=== PATIENT | female | born 1950 | race African-American/Black ===

== ENCOUNTER 2018-04-22 22:46 | Emergency (ER) | payer BC ==
[~2018-04-22] VITALS: Ht 154.9 cm; Wt 84.0 kg
[~2018-04-22 22:46] MED LIST: CYMBALTA; DIOVAN; FENTANYL; ISOS5TAB4; PLAVIX; SIMVASTATIN; SOMA
[2018-04-23] MEDS ORDERED: MORPHINE SULFATE 4 MG/ML CPJ (NOT FOR IM USE) IV STA (00:32)
[2018-04-23] MEDS ORDERED: ONDANSETRON HCL 4MG/2ML INJ IV STA (00:32)
[2018-04-23 01:07] LABS: EOSINOPHILS % 0.5 % (0.0-5.0); HEMOGLOBIN. 11.4 g/dL (12.0-16.0); LYMPHOCYTES % 23.5 % (20.0-50.0); MEAN PLATELET VOLUME 10.1 fl (7.4-10.4); MONOCYTES % 8.3 % (2.0-8.0); NEUTROPHILS % 66.7 % (40.0-76.0); PLATELET 182 x1000/uL (130-400); RED BLOOD CELL COUNT 4.22 mill/uL (4.2-5.4)
[2018-04-23 01:14] LABS: CHLORIDE 106 mEq/L (98-107)
[2018-04-23] MEDS ORDERED: MORPHINE SULFATE 4 MG/ML CPJ (NOT FOR IM USE) IV ONE (02:30)
[2018-04-23] MEDS ORDERED: METHYLPREDNISOLONE SOD SUCC 125 MG/2 ML VIAL IV ONE (02:30)
[2018-04-23 04:21] VITALS: BP 164/83
== END 2018-04-23 04:30 | disposition home or self-care (01) ==
LOC: ER 23:15 → CANBEDREQ 04-23 09:01
DX: R51 Headache (principal); Z88.6 Allergy status to analgesic agent; Z88.0 Allergy status to penicillin; Z88.8 Allergy status to other drugs, medicaments and biological substances; Z95.1 Presence of aortocoronary bypass graft
CPT/HCPCS: 36415; 70450; 80048; 85025; 85651; 96374; 96375; 96376; 99285; J2270; J2405; J2930

== ENCOUNTER 2019-03-05 17:13 | Inpatient (IN) | payer BC ==
[~2019-03-05] VITALS: Ht 152.4 cm; Wt 78.9 kg
[2019-03-05] MEDS ORDERED: HYDRALAZINE 20MG/ML VIAL IV ONE (17:51)
[2019-03-05] MEDS ORDERED: ASPIRIN 81MG TABLET PO ONE (17:51)
[2019-03-05] MEDS ORDERED: ONDANSETRON HCL 4MG/2ML INJ IV ONE (17:51)
[2019-03-05] MEDS ORDERED: ONDANSETRON HCL 4MG/2ML INJ ONE (17:57)
[2019-03-05] MEDS ORDERED: ASPIRIN 325MG TABLET ONE (17:58)
[2019-03-05] MEDS ORDERED: HYDRALAZINE 20MG/ML VIAL ONE (17:59)
[2019-03-05 18:36] LABS: BASOPHILS % 0.9 % (0.0-2.0); HEMATOCRIT. 39.3 % (36.0-48.0); HEMOGLOBIN. 12.8 g/dL (12.0-16.0); LYMPHOCYTES % 16.5 % (20.0-50.0); MEAN CORPUSCULAR HEMOGLOBIN 26.9 pg (28.0-32.0); MEAN CORPUSCULAR VOLUME 82.6 fL (81.0-99.0); MEAN PLATELET VOLUME 10.8 fl (7.4-10.4); MONOCYTES % 2.5 % (2.0-8.0); NEUTROPHILS % 80.1 % (40.0-76.0); PLATELET 163 x1000/uL (130-400); RED BLOOD CELL COUNT 4.75 mill/uL (4.2-5.4); RED CELL DISTRIBUTION WIDTH 15.7 % (11.6-14.6)
[2019-03-05] MEDS ORDERED: NITROGLYCERIN 0.4MG TABLET SL SL ONE (18:45)
[2019-03-05] MEDS ORDERED: ACETAMINOPHEN 325MG TABLET PO PRN (19:00)
[2019-03-05] MEDS ORDERED: HYDROCODONE/ACETAMINOPHEN 5/325MG TABLET PO PRN (19:00)
[2019-03-05] MEDS ORDERED: HYDRALAZINE 20MG/ML VIAL IV PRN (19:00)
[2019-03-05] MEDS ORDERED: CLONIDINE 0.1MG TABLET PO PRN (19:00)
[2019-03-05 19:31] LABS: CHLORIDE 103 mEq/L (98-107)
[2019-03-05] MEDS: ONDANSETRON HCL 4MG/2ML INJ IV PRN (21:13)
[2019-03-05 23:50] VITALS: BP 165/82
[2019-03-06] VITALS: BP 165/82
[2019-03-06] MEDS: MORPHINE SULFATE 2 MG/ML CPJ (NOT FOR IM USE) IV PRN ×4 (00:46→14:26)
[2019-03-06] MEDS ORDERED: POTASSIUM CHLORIDE 20MEQ TABLET SR PO NR (01:00)
[2019-03-06 04:00] VITALS: BP 164/84
[2019-03-06 06:48] LABS: BASOPHILS % 0.2 % (0.0-2.0); EOSINOPHILS % 0.1 % (0.0-5.0); HEMATOCRIT. 36.9 % (36.0-48.0); HEMOGLOBIN. 12.2 g/dL (12.0-16.0); LYMPHOCYTES % 13.6 % (20.0-50.0); MEAN CORPUSCULAR HEMOGLOBIN 27.2 pg (28.0-32.0); MEAN CORPUSCULAR VOLUME 82.1 fL (81.0-99.0); MEAN PLATELET VOLUME 10.6 fl (7.4-10.4); MONOCYTES % 5.5 % (2.0-8.0); NEUTROPHILS % 80.6 % (40.0-76.0); PLATELET 183 x1000/uL (130-400); RED CELL DISTRIBUTION WIDTH 15.2 % (11.6-14.6)
[2019-03-06 08:00] VITALS: BP 170/79
[2019-03-06] MEDS ORDERED: ENOXAPARIN 40MG/0.4ML SYR SUBCUT SCH (09:00)
[2019-03-06] MEDS ORDERED: ASPIRIN 81MG EC TABLET PO NR (09:00)
[2019-03-06] MEDS ORDERED: OMEPRAZOLE 20MG CAPSULE EXTENDED RELEASE PO ONE (09:00)
[2019-03-06] MEDS ORDERED: CLONIDINE 0.1MG TABLET PO PRN (09:00)
[2019-03-06] MEDS ORDERED: AMLODIPINE 5MG TABLET PO SCH ×2 (09:30→10:45)
[2019-03-06] MEDS: ONDANSETRON HCL 4MG/2ML INJ IV PRN (09:32)
[2019-03-06] MEDS: LOSARTAN POTASSIUM 50 MG TABLET PO SCH (09:32)
[2019-03-06 09:37] LABS: BG BASE EXCESS -1.8 mmol/L (-2.0-2.0); BG CARBOXYHEMOGLOBIN 0.6 % (0.5-1.5); BG DEOXYHEMOGLOBIN 3.6 % (0.0-5.0); BG FRACTION INSPIRED OXYGEN 21; BG HCO3 ACT 22.1 mmol/L (22.0-26.0); BG METHEMOGLOBIN 0.2 % (0.0-1.5); BG OXYGEN SATURATION 96.4 % (92.0-98.5); BG OXYHEMOGLOBIN 95.6 % (94.0-97.0); BG PCO2 34.7 mmHg (35.0-45.0); BG PH 7.421 (7.350-7.450); BG PO2 85.1 mmHg (75.0-100.0); BG SAMPLE SITE LEFT RADIAL; BG TOTAL HEMOGLOBIN 13.2 g/dL (12.0-18.0); BG VENT MODE ROOM AIR
[2019-03-06] MEDS ORDERED: REGADENOSON 0.4 MG/5 ML IV NR (10:45)
[2019-03-06 12:00] VITALS: BP 114/58
[2019-03-06] MEDS: NITROGLYCERIN OINT 1GM/INCH UDPKT TD SCH ×2 (13:18→17:34)
[2019-03-06 16:00] VITALS: BP 96/46
[2019-03-06 20:00] VITALS: BP 98/51
[2019-03-06] MEDS: AMLODIPINE 5MG TABLET PO SCH (21:00)
[2019-03-06] MEDS: ATORVASTATIN CALCIUM 10MG TABLET PO SCH (21:04)
[2019-03-07] VITALS: BP 110/53
[2019-03-07 04:00] VITALS: BP 150/57
[2019-03-07] MEDS: NITROGLYCERIN OINT 1GM/INCH UDPKT TD SCH ×4 (04:26→17:53)
[2019-03-07] MEDS: MORPHINE SULFATE 2 MG/ML CPJ (NOT FOR IM USE) IV PRN ×2 (05:15→19:03)
[2019-03-07] MEDS: OMEPRAZOLE 20MG CAPSULE EXTENDED RELEASE PO SCH (06:16)
[2019-03-07 06:27] LABS: EOSINOPHILS % 0.7 % (0.0-5.0); HEMATOCRIT. 38.1 % (36.0-48.0); HEMOGLOBIN. 12.4 g/dL (12.0-16.0); LYMPHOCYTES % 34.7 % (20.0-50.0); MEAN PLATELET VOLUME 10.1 fl (7.4-10.4); MONOCYTES % 7.2 % (2.0-8.0); NEUTROPHILS % 56.4 % (40.0-76.0); PLATELET 202 x1000/uL (130-400); RED CELL DISTRIBUTION WIDTH 15.5 % (11.6-14.6)
[2019-03-07 06:43] LABS: CHLORIDE 105 mEq/L (98-107)
[2019-03-07 08:00] VITALS: BP 109/54
[2019-03-07] MEDS: AMLODIPINE 5MG TABLET PO SCH (09:00)
[2019-03-07] MEDS: LOSARTAN POTASSIUM 50 MG TABLET PO SCH (09:00)
[2019-03-07] MEDS ORDERED: SODIUM CHL 0.45% + KCL 20MEQ/L 1,000 ML IV SCH (11:00)
[2019-03-07] MEDS ORDERED: REGADENOSON 0.4 MG/5 ML IV ONE (11:29)
[2019-03-07 12:03] LABS: CREATINE KINASE 35 IU/L (26-192)
[2019-03-07] MEDS: HYDRALAZINE HCL 25MG TABLET PO SCH ×2 (13:16→21:13)
[2019-03-07] MEDS: ENOXAPARIN 30MG/0.3ML SYR SUBCUT SCH (13:17)
[2019-03-07] MEDS: SODIUM CHLORIDE 0.45% 1,000 ML IV SCH ×2 (13:51→21:18)
[2019-03-07 16:00] VITALS: BP 124/55
[2019-03-07 18:00] LABS: CLARITY URINE CLOUDY (CLEAR); COLOR URINE DARK YELLOW (YELLOW); KETONES URINE TRACE (NEGATIVE); LEUKOCYTE ESTERASE URINE TRACE (NEGATIVE); NITRITE URINE NEGATIVE (NEGATIVE); OCCULT BLOOD URINE NEGATIVE (NEGATIVE); PROTEIN URINE 2+ (NEGATIVE); SPECIFIC GRAVITY URINE 1.016 (1.005-1.030); UROBILINOGEN URINE 0.2 E.U./dL (0.2-1.0)
[2019-03-07 18:22] LABS: *AMPHETAMINES SCREEN URINE NEGATIVE (NEGATIVE); *BARBITURATES SCREEN URINE NEGATIVE (NEGATIVE); *BENZODIAZEPINES SCREEN URINE NEGATIVE (NEGATIVE); *COCAINE SCREEN URINE NEGATIVE (NEGATIVE); METHADONE URINE SCREEN NEGATIVE (NEGATIVE)
[2019-03-07 18:23] LABS: CANNABINOID URINE SCREEN NEGATIVE (NEGATIVE); OPIATES URINE SCREEN PRESUMTIVE POSITIVE (NEGATIVE); PHENCYCLIDINE URINE SCREEN NEGATIVE (NEGATIVE)
[2019-03-07 20:00] VITALS: BP 120/55
[2019-03-07] MEDS ORDERED: ATORVASTATIN CALCIUM 10MG TABLET PO SCH (21:00)
[2019-03-07] MEDS: ATORVASTATIN CALCIUM 10MG TABLET PO SCH (21:13)
[2019-03-07] MEDS: AMLODIPINE 2.5MG TABLET PO SCH (21:14)
[2019-03-08] VITALS: BP_SYST 98; BP_DIAS 50; BP_DIAS 51
[2019-03-08] MEDS: MORPHINE SULFATE 2 MG/ML CPJ (NOT FOR IM USE) IV PRN ×5 (01:36→22:11)
[2019-03-08 04:00] VITALS: BP 136/59
[2019-03-08] MEDS: HYDRALAZINE HCL 25MG TABLET PO SCH ×3 (05:55→22:10)
[2019-03-08] MEDS: OMEPRAZOLE 20MG CAPSULE EXTENDED RELEASE PO SCH (05:56)
[2019-03-08] MEDS: NITROGLYCERIN OINT 1GM/INCH UDPKT TD SCH ×4 (05:56→17:44)
[2019-03-08 07:58] LABS: PHOSPHORUS 4.4 mg/dL (2.5-4.9)
[2019-03-08 08:00] VITALS: BP 127/51
[2019-03-08] MEDS: AMLODIPINE 2.5MG TABLET PO SCH ×2 (08:30→22:10)
[2019-03-08] MEDS: SODIUM CHLORIDE 0.45% 1,000 ML IV SCH ×2 (08:30→17:45)
[2019-03-08 09:55] LABS: BASOPHILS % 0.9 % (0.0-2.0); EOSINOPHILS % 1.3 % (0.0-5.0); HEMATOCRIT. 35.4 % (36.0-48.0); HEMOGLOBIN. 11.6 g/dL (12.0-16.0); LYMPHOCYTES % 38.8 % (20.0-50.0); MEAN CORPUSCULAR HEMOGLOBIN 27.2 pg (28.0-32.0); MEAN CORPUSCULAR VOLUME 82.9 fL (81.0-99.0); MONOCYTES % 7.9 % (2.0-8.0); NEUTROPHILS % 51.1 % (40.0-76.0); PLATELET 207 x1000/uL (130-400); RED BLOOD CELL COUNT 4.26 mill/uL (4.2-5.4); RED CELL DISTRIBUTION WIDTH 15.3 % (11.6-14.6)
[2019-03-08 12:00] VITALS: BP 105/59
[2019-03-08] MEDS: ENOXAPARIN 30MG/0.3ML SYR SUBCUT SCH (12:17)
[2019-03-08 16:00] VITALS: BP 114/62
[2019-03-08 20:00] VITALS: BP 126/61
[2019-03-08] MEDS: ATORVASTATIN CALCIUM 10MG TABLET PO SCH (22:10)
[2019-03-09] VITALS: BP 144/69
[2019-03-09] MEDS: NITROGLYCERIN OINT 1GM/INCH UDPKT TD SCH ×3 (01:08→11:06)
[2019-03-09 04:00] VITALS: BP 118/61
[2019-03-09] MEDS: MORPHINE SULFATE 2 MG/ML CPJ (NOT FOR IM USE) IV PRN ×3 (04:18→13:25)
[2019-03-09] MEDS: OMEPRAZOLE 20MG CAPSULE EXTENDED RELEASE PO SCH (06:04)
[2019-03-09] MEDS: SODIUM CHLORIDE 0.45% 1,000 ML IV SCH (06:04)
[2019-03-09] MEDS: HYDRALAZINE HCL 25MG TABLET PO SCH ×2 (06:04→14:26)
[2019-03-09 07:31] LABS: BASOPHILS % 0.6 % (0.0-2.0); HEMATOCRIT. 34.3 % (36.0-48.0); HEMOGLOBIN. 11.3 g/dL (12.0-16.0); LYMPHOCYTES % 34.1 % (20.0-50.0); MEAN CORPUSCULAR HEMOGLOBIN 27.4 pg (28.0-32.0); MEAN CORPUSCULAR VOLUME 82.8 fL (81.0-99.0); MEAN PLATELET VOLUME 10.2 fl (7.4-10.4); MONOCYTES % 10.2 % (2.0-8.0); NEUTROPHILS % 53.1 % (40.0-76.0); PLATELET 202 x1000/uL (130-400); RED BLOOD CELL COUNT 4.14 mill/uL (4.2-5.4); RED CELL DISTRIBUTION WIDTH 15.5 % (11.6-14.6)
[2019-03-09 08:00] VITALS: BP 117/55
[2019-03-09] MEDS ORDERED: LACTULOSE 20G/30ML UDC PO NR (08:45)
[2019-03-09] MEDS: AMLODIPINE 2.5MG TABLET PO SCH (08:46)
[2019-03-09] MEDS ORDERED: ASPIRIN 81MG EC TABLET PO SCH (09:00)
[2019-03-09] MEDS ORDERED: ENOXAPARIN 40MG/0.4ML SYR SUBCUT SCH (09:00)
[2019-03-09 10:10] VITALS: BP 129/54
[2019-03-09] MEDS: ENOXAPARIN 30MG/0.3ML SYR SUBCUT SCH (11:07)
[2019-03-09 12:00] VITALS: BP 129/54
[2019-03-09 16:00] VITALS: BP 128/50
[2019-03-10] MEDS ORDERED: ENOXAPARIN 40MG/0.4ML SYR SUBCUT SCH (09:00)
== END 2019-03-09 17:40 | disposition home or self-care (01) | DRG 302 ==
LOC: ER 17:13 → EDBEDREQ 19:53 → EDBEDREQSVC 19:53 → EDBEDREQTM 19:53 → ENRESERV 22:31 → 5WST 03-06 00:03
PROVIDERS: ADMIT Internal Medicine Nephrology; ATTEND Internal Medicine Nephrology
DX: I25.110 Atherosclerotic heart disease of native coronary artery with unstable angina pectoris (principal); N17.0 Acute kidney failure with tubular necrosis; I24.9 Acute ischemic heart disease, unspecified; I16.1 Hypertensive emergency; E03.9 Hypothyroidism, unspecified; E78.5 Hyperlipidemia, unspecified; E87.6 Hypokalemia; F41.1 Generalized anxiety disorder; I11.9 Hypertensive heart disease without heart failure; K29.70 Gastritis, unspecified, without bleeding; E86.0 Dehydration; E88.09 Other disorders of plasma-protein metabolism, not elsewhere classified; G89.4 Chronic pain syndrome; M54.17 Radiculopathy, lumbosacral region; K21.9 Gastro-esophageal reflux disease without esophagitis; Z91.81 History of falling; Z95.5 Presence of coronary angioplasty implant and graft; Z86.73 Personal history of transient ischemic attack (TIA), and cerebral infarction without residual deficits; Z91.14 Patient's other noncompliance with medication regimen; Z95.1 Presence of aortocoronary bypass graft; Z79.899 Other long term (current) drug therapy; Z88.0 Allergy status to penicillin; Z88.8 Allergy status to other drugs, medicaments and biological substances
CPT/HCPCS: 36415; 36600; 71045; 76770; 78452; 80048; 80061; 80305; 81003; 82375; 82550; 82805; 83880; 84100; 84443; 84484; 84550; 93005; 93017; 93306; 96374; 97110; 97116; 97140; 97162; 97530; 97535; 99291; A9500; J0360; J1650; J2270; J2405; J2785; J3480; A4315

== ENCOUNTER 2022-05-24 19:54 | Emergency (ER) | payer BC ==
[~2022-05-24] VITALS: Ht 152.4 cm; Wt 70.9 kg
[~2022-05-24 19:54] MED LIST changes: +AMLO5TAB88 PO; +ATOR40TA70 PO; +CLOP-31 PO; -CYMBALTA; -DIOVAN; -FENTANYL; +HYDR-4135 PO; -ISOS5TAB4; -PLAVIX; +PROT40 PO; -SIMVASTATIN; -SOMA; +TIZA-191 PO
[2022-05-24 20:54] VITALS: BP 149/59
[2022-05-25] MEDS ORDERED: ACETAMINOPHEN WITH CODEINE 300/30MG TABLET PO STA (03:07)
[2022-05-25] MEDS ORDERED: TRAM50TA3 PO (04:03)
[2022-05-25] MEDS ORDERED: ACET-2708 PO (04:03)
== END 2022-05-25 04:13 | disposition home or self-care (01) ==
LOC: ER 21:35
DX: S70.01XA Contusion of right hip, initial encounter (principal); M54.50 Low back pain, unspecified; I11.9 Hypertensive heart disease without heart failure; Z95.1 Presence of aortocoronary bypass graft; Z79.01 Long term (current) use of anticoagulants; Z88.6 Allergy status to analgesic agent; Z88.0 Allergy status to penicillin; W07.XXXA Fall from chair, initial encounter; Y93.89 Activity, other specified; Y92.018 Other place in single-family (private) house as the place of occurrence of the external cause
CPT/HCPCS: 72100; 73502; 99284

== ENCOUNTER 2024-01-10 19:52 | Emergency (ER) | payer BC ==
[~2024-01-10] VITALS: Ht 165.1 cm; Wt 73.0 kg
[~2024-01-10 19:52] MED LIST changes: +ACET-2708 PO; -HYDR-4135 PO; +HYDR50TA40 PO; +TRAM50TA3 PO
[2024-01-10 20:11] VITALS: O2SAT 100
[2024-01-10 20:40] VITALS: BP 190/92; RESP 16; TEMP 98.4
[2024-01-10] MEDS: LIDOCAINE 5% PATCH TOP SCH (21:09)
[2024-01-10 21:15] VITALS: PULSE 68
[2024-01-10] MEDS: DIAZEPAM 5 MG/ML 2ML SYR IM ONE (21:15)
[2024-01-10] MEDS: KETOROLAC 30MG/ML VIAL IM ONE (21:15)
[2024-01-10] MEDS ORDERED: LIDO700A30 TP (21:45)
[2024-01-10] MEDS ORDERED: CLONIDINE 0.2MG TABLET PO ONE (21:45)
[2024-01-10] MEDS ORDERED: NAPR-681 MT (21:45)
[2024-01-10] MEDS: CLONIDINE 0.1MG TABLET PO NR (22:15)
== END 2024-01-10 23:25 | disposition home or self-care (01) ==
LOC: ER 19:52
DX: M54.31 Sciatica, right side (principal); M79.604 Pain in right leg; I10 Essential (primary) hypertension; I25.2 Old myocardial infarction; Z79.899 Other long term (current) drug therapy
CPT/HCPCS: 99284; 96372; J3360; J1885

== ENCOUNTER 2024-02-25 23:11 | Emergency (ER) | payer BC ==
[~2024-02-25] VITALS: Ht 154.9 cm; Wt 72.0 kg
[~2024-02-25 23:11] MED LIST changes: +LIDO700A30 TP; +NAPR-681 MT
[2024-02-25 23:14] VITALS: TEMP 98.3; O2SAT 99
[2024-02-26] MEDS: KETOROLAC 30MG/ML VIAL IM ONE (00:06)
[2024-02-26 00:07] VITALS: PULSE 86
[2024-02-26] MEDS: HYDROCODONE/ACETAMINOPHEN 5/325MG TABLET PO ONE (00:07)
[2024-02-26 00:11] VITALS: BP 136/93; RESP 16
[2024-02-26] MEDS: LIDOCAINE 5% PATCH TOP SCH (00:11)
[2024-02-26] MEDS ORDERED: METH4TAB95 MT (01:03)
[2024-02-26] MEDS ORDERED: TRAM50TA3 MT (01:03)
== END 2024-02-26 02:03 | disposition home or self-care (01) ==
LOC: ER 23:20
DX: M54.16 Radiculopathy, lumbar region (principal); I25.2 Old myocardial infarction; I10 Essential (primary) hypertension; Z88.0 Allergy status to penicillin; Z88.6 Allergy status to analgesic agent; Z79.899 Other long term (current) drug therapy
CPT/HCPCS: 99283; 96372; J1885

== ENCOUNTER 2024-06-29 08:48 | Inpatient (IN) | payer MEDICARE, BC ==
[~2024-06-29] VITALS: Ht 153.7 cm; Wt 67.6 kg
[~2024-06-29 08:48] MED LIST changes: +AMI2 PO; +DILT180T11 MT; +HYDR50TA39 PO; -HYDR50TA40 PO; +LEVO-65 MT; -LIDO700A30 TP; +LIP40 PO; +METH4TAB95 MT; +METR-167 PO; -NAPR-681 MT; +TOPUD PO
[2024-06-29 09:35] LABS: HEMATOCRIT. 35.6 % (36.0-48.0); HEMOGLOBIN. 11.5 g/dL (12.0-16.0); MEAN CORPUSCULAR HEMOGLOBIN 25.8 pg (28.0-32.0); MEAN CORPUSCULAR HGB CONC 32.4 g/dL (31.0-37.0); MEAN CORPUSCULAR VOLUME 79.6 fL (81.0-99.0); MEAN PLATELET VOLUME 10.1 fl (7.4-10.4); PLATELET 153 x1000/uL (130-400); RED BLOOD CELL COUNT 4.48 mill/uL (4.2-5.4); WHITE BLOOD COUNT 10.3 x1000/uL (4.5-11.0)
[2024-06-29] MEDS: MORPHINE SULFATE 4 MG/ML INJ (FOR IV/IM USE) IV ONE (09:35)
[2024-06-29 09:53] LABS: CHLORIDE 107 mEq/L (98-107); POTASSIUM 3.7 mEq/L (3.5-5.1); SODIUM 141 mEq/L (136-145)
[2024-06-29 09:54] LABS: CALCIUM 9.4 mg/dL (8.7-10.4); CARBON DIOXIDE 22 mEq/L (21-32)
[2024-06-29 09:56] LABS: DIFFERENTIAL COMMENT 1
[2024-06-29 09:59] LABS: GLUCOSE 97 mg/dL (70-105); UREA NITROGEN BLOOD 17 mg/dL (9-23)
[2024-06-29 10:31] LABS: TROPONIN I HIGH SENSITIVITY 227 ng/L (3.0-34)
[2024-06-29] MEDS: ENOXAPARIN 60MG/0.6ML SYR SUBCUT ONE (10:53)
[2024-06-29] MEDS ORDERED: ACETAMINOPHEN 325MG TABLET PO PRN (15:15)
[2024-06-29] MEDS ORDERED: ONDANSETRON HCL 4MG/2ML INJ IV PRN (15:15)
[2024-06-29] MEDS: ASPIRIN 325MG EC TABLET PO NR (15:24)
[2024-06-29] MEDS ORDERED: NITROGLYCERIN 0.4MG TABLET SL SL PRN (15:30)
[2024-06-29 16:00] VITALS: BP 176/77; PULSE 68; RESP 20; TEMP 36.50292; O2SAT 98
[2024-06-29 16:09] LABS: PHOSPHORUS 2.7 mg/dL (2.5-4.9)
[2024-06-29] MEDS: METOPROLOL SUCCINATE 50MG ER TABLET PO SCH (16:16)
[2024-06-29 16:19] LABS: PARTIAL THROMBOPLASTIN TIME 33.3 sec (23.4-31.0); PROTHROMBIN TIME 10.8 sec (9.6-11.0)
[2024-06-29 17:15] LABS: ANISOCYTOSIS 1+; PLATELET ESTIMATE NORMAL
[2024-06-29] MEDS: IPRATROPIUM/ALBUTEROL 0.5-3(2.5)MG/3ML NEB HHN SCH (18:00)
[2024-06-29 20:00] VITALS: BP 137/98; PULSE 71; RESP 16; TEMP 37.2252; O2SAT 98
[2024-06-29] MEDS: ATORVASTATIN CALCIUM 40MG TABLET PO SCH (21:36)
[2024-06-29] MEDS: AMLODIPINE 5MG TABLET PO SCH (21:36)
[2024-06-29] MEDS: HYDRALAZINE HCL 25MG TABLET PO SCH (21:36)
[2024-06-30] VITALS: BP 164/96; PULSE 68; RESP 16; TEMP 36.9474; O2SAT 99
[2024-06-30] MEDS: HYDRALAZINE 20MG/ML VIAL IV PRN (02:03)
[2024-06-30] MEDS: ACETAMINOPHEN 325MG TABLET PO PRN (02:09)
[2024-06-30 02:35] LABS: CREATINE KINASE MB FRACTION 0.6 ng/mL (0.5-3.6)
[2024-06-30 04:00] VITALS: BP 181/80; PULSE 68; RESP 18; TEMP 36.28068; O2SAT 98
[2024-06-30] MEDS: CLONIDINE 0.1MG TABLET PO PRN (05:18)
[2024-06-30 07:30] LABS: HEMATOCRIT. 37.2 % (36.0-48.0); HEMOGLOBIN. 11.8 g/dL (12.0-16.0); MEAN CORPUSCULAR HEMOGLOBIN 25.6 pg (28.0-32.0); MEAN CORPUSCULAR HGB CONC 31.8 g/dL (31.0-37.0); MEAN CORPUSCULAR VOLUME 80.5 fL (81.0-99.0); MEAN PLATELET VOLUME 10.4 fl (7.4-10.4); PLATELET 163 x1000/uL (130-400); RED BLOOD CELL COUNT 4.62 mill/uL (4.2-5.4); RED CELL DISTRIBUTION WIDTH 17.6 % (11.6-14.6); WHITE BLOOD COUNT 9.8 x1000/uL (4.5-11.0)
[2024-06-30 07:43] LABS: DIFFERENTIAL COMMENT 1
[2024-06-30 07:55] LABS: CREATINE KINASE MB FRACTION 0.5 ng/mL (0.5-3.6)
[2024-06-30 07:58] LABS: CARBON DIOXIDE 23 mEq/L (21-32); CHLORIDE 107 mEq/L (98-107); POTASSIUM 4.3 mEq/L (3.5-5.1); SODIUM 139 mEq/L (136-145)
[2024-06-30 07:59] LABS: CALCIUM 9.3 mg/dL (8.7-10.4)
[2024-06-30 08:00] VITALS: BP 149/70; PULSE 68; RESP 16; TEMP 36.83628; O2SAT 98
[2024-06-30 08:00] LABS: THYROID STIMULATING HORMONE 1.04 uIU/mL (0.55-4.78)
[2024-06-30 08:03] LABS: CREATININE 0.9 mg/dL (0.6-1.0); GLUCOSE 102 mg/dL (70-105)
[2024-06-30 08:04] LABS: LDL CHOLESTEROL 95 mg/dL (5-100); TRIGLYCERIDE 62 mg/dL (0-150); UREA NITROGEN BLOOD 14 mg/dL (9-23)
[2024-06-30 08:05] LABS: CREATINE KINASE 27 IU/L (34-145)
[2024-06-30 08:06] LABS: CHOLESTEROL 185 mg/dL (<200); HDL CHOLESTEROL 67 mg/dL (>65)
[2024-06-30 08:20] LABS: TROPONIN I HIGH SENSITIVITY 234 ng/L (3.0-34)
[2024-06-30] MEDS ORDERED: MIDAZOLAM HCL 2 MG/2 ML VIAL ONE (08:52)
[2024-06-30] MEDS ORDERED: FENTANYL CITRATE/PF 50MCG/ML 2ML VIAL ONE (08:52)
[2024-06-30] MEDS ORDERED: ASPIRIN 81MG EC TABLET PO SCH (09:00)
[2024-06-30] MEDS ORDERED: IODIXANOL 320MG/ML 100 ML BOTTLE IV ONE (09:40)
[2024-06-30] MEDS ORDERED: LIDOCAINE HCL 1% 10 MG/ML 10ML VIAL ONE (09:55)
[2024-06-30] MEDS ORDERED: HYDRALAZINE 20MG/ML VIAL ONE (09:55)
[2024-06-30] MEDS ORDERED: ASPIRIN 325MG EC TABLET PO ONE (10:12)
[2024-06-30] MEDS ORDERED: CLOPIDOGREL 75MG TABLET ONE ×2 (10:12→10:13)
[2024-06-30] MEDS ORDERED: ATROPINE SULFATE 1MG/10ML SYR IV PRN (10:30)
[2024-06-30] MEDS: MORPHINE SULFATE 2 MG/ML INJ (NOT FOR IM USE) IV NR ×2 (13:35→13:52)
[2024-06-30] MEDS ORDERED: NALOXONE HCL 0.4MG/ML VIAL IV PRN (14:00)
[2024-06-30 15:49] LABS: ANISOCYTOSIS 1+; PLATELET ESTIMATE NORMAL
[2024-06-30 18:00] VITALS: BP 110/76; PULSE 77; RESP 16; TEMP 36.9474; O2SAT 99
[2024-06-30 18:38] VITALS: BP 110/76; PULSE 73; RESP 14; TEMP 36.974
[2024-06-30 20:00] VITALS: BP 147/61; PULSE 73; RESP 12; TEMP 37.05852; O2SAT 99
[2024-06-30] MEDS: ASPIRIN 81MG TABLET PO SCH (21:49)
[2024-07-01] VITALS (7 sets, daily range): BP systolic 123–138; BP diastolic 51–75; PULSE 68–87; RESP 12–23; TEMP 36.72516–36.9474; O2SAT 97–100
[2024-07-01] MEDS: FAMOTIDINE 20MG/2ML VIAL IV SCH (09:21)
[2024-07-01] MEDS: CLOPIDOGREL 75MG TABLET PO SCH (09:21)
[2024-07-01 09:27] LABS: CARBON DIOXIDE 23 mEq/L (21-32); CHLORIDE 108 mEq/L (98-107); POTASSIUM 3.6 mEq/L (3.5-5.1); SODIUM 137 mEq/L (136-145)
[2024-07-01 09:28] LABS: CALCIUM 9.1 mg/dL (8.7-10.4)
[2024-07-01 09:33] LABS: GLUCOSE 99 mg/dL (70-105); UREA NITROGEN BLOOD 19 mg/dL (9-23)
[2024-07-01 09:34] LABS: HEMATOCRIT. 36.3 % (36.0-48.0); HEMOGLOBIN. 11.8 g/dL (12.0-16.0); MEAN CORPUSCULAR HEMOGLOBIN 26.1 pg (28.0-32.0); MEAN CORPUSCULAR HGB CONC 32.6 g/dL (31.0-37.0); MEAN PLATELET VOLUME 10.7 fl (7.4-10.4); PLATELET 170 x1000/uL (130-400); RED BLOOD CELL COUNT 4.54 mill/uL (4.2-5.4); RED CELL DISTRIBUTION WIDTH 17.4 % (11.6-14.6); WHITE BLOOD COUNT 10.2 x1000/uL (4.5-11.0)
[2024-07-01 09:50] LABS: HEPATITIS B SURFACE ANTIGEN NEGATIVE (Negative)
[2024-07-01 10:01] LABS: DIFFERENTIAL COMMENT 1
[2024-07-01 10:12] LABS: HEPATITIS C AB NON REACTIVE (Neg) (Negative)
[2024-07-01] MEDS ORDERED: METO-385 PO (12:31)
[2024-07-01] MEDS ORDERED: CLOP-31 PO (12:31)
[2024-07-01] MEDS ORDERED: LIP40 PO (12:31)
[2024-07-01] MEDS ORDERED: AMLO5TAB88 PO (12:31)
[2024-07-01] MEDS ORDERED: ASPI-1160 PO (12:31)
[2024-07-01] MEDS ORDERED: HYDR25TA78 PO (12:31)
[2024-07-01 17:21] LABS: ANISOCYTOSIS 1+; PLATELET ESTIMATE NORMAL
== END 2024-07-01 16:47 | disposition home or self-care (01) | DRG 322 ==
LOC: ER 08:48 → 5WST 11:00 → EDBEDREQ 11:09 → 3WST 06-30 17:12
PROVIDERS: ADMIT Internal Medicine; ATTEND Internal Medicine
PROC: 027034Z Dilation of Coronary Artery, One Artery with Drug-eluting Intraluminal Device, Percutaneous Approach (ICD-10-PCS; principal; 2024-06-30)
PROC: B211YZZ Fluoroscopy of Multiple Coronary Arteries using Other Contrast (ICD-10-PCS; 2024-06-30)
DX: I21.4 Non-ST elevation (NSTEMI) myocardial infarction (principal); E03.9 Hypothyroidism, unspecified; I25.10 Atherosclerotic heart disease of native coronary artery without angina pectoris; I10 Essential (primary) hypertension; I48.91 Unspecified atrial fibrillation; Z79.82 Long term (current) use of aspirin; Z88.0 Allergy status to penicillin; Z79.899 Other long term (current) drug therapy; Z88.6 Allergy status to analgesic agent; Z88.8 Allergy status to other drugs, medicaments and biological substances; Z79.02 Long term (current) use of antithrombotics/antiplatelets
CPT/HCPCS: 36415; 71045; 80048; 80061; 82550; 82553; 83735; 83880; 84100; 84439; 84443; 84484; 85025; 85347; 86705; 86850; 86900; 87340; 92928; 93005; 93306; 93454; 93970; 94070; 94640; 99285; A4606; C1769; C1874; C1887; C1893; J0360; J1650; J2003; J2250; J2270; J3010; J3490; Q9967